=== PATIENT | male | born 1965 | race Caucasian/White ===

== ENCOUNTER 2017-04-26 15:47 | Emergency (ER) | payer OTHER ==
[~2017-04-26] VITALS: Ht 157.5 cm; Wt 85.7 kg
[2017-04-26 17:28] VITALS: Ht 157.5 cm; Wt 85.7 kg
[2017-04-26 18:11] LABS: RED CELL DISTRIBUTION WIDTH 13.1 % (11.5-14.5)
[2017-04-26 18:15] LABS: PLATELET COUNT 128 x10^3mcL (130-400)
[2017-04-26 18:31] VITALS: BP 136/88
[2017-04-26 18:33] LABS: BAND NEUTROPHIL 13 % (0-10); METAMYELOCTE 1 % (0-2); MONOCYTE 9 % (0-7); SEGMENTED NEUTROPHILS 71 % (37-75)
[2017-04-26 18:34] LABS: PLATELET MORPHOLOGY LARGE PLATELET SEEN; rbc morphology (normal/abnorm) NORMAL (NORMAL)
[2017-04-26 18:39] LABS: T3 TOTAL 0.35 ng/mL
[2017-04-26 18:48] LABS: BILIRUBIN TOTAL 2.2 mg/dL (0.20-1.00); CALCIUM 8.1 mg/dL (8.5-10.1); CARBON DIOXIDE 16.7 mmol/L (21-32); CREATININE SERUM 1.5 mg/dL (0.7-1.3); POTASSIUM SERUM 3.7 mmol/L (3.5-5.1); TOTAL PROTEIN, SERUM 7.2 g/dL (6.4-8.2)
[2017-04-26 18:50] LABS: UA SPECIFIC GRAVITY 1.015 (1.005-1.035); microscopic required? YES; urine erythrocyte 1+ (NEGATIVE)
[2017-04-26 18:52] LABS: ALBUMIN 2.5 g/dL (3.4-5.0)
[2017-04-26 18:58] LABS: AMPHETAMINE QUAL UR NONE DETECTED (NEG <=1000)
[2017-04-26 19:04] LABS: CK-MB 2.6 ng/mL (0-3.6)
[2017-04-26 19:07] LABS: ERYTHROCYTE SED RATE 52 mm/hr (0-15)
[2017-04-26 19:10] LABS: C REACTIVE PROTEIN 22.9 mg/dL (<=0.9)
[2017-04-26 19:19] LABS: FREE T4 1.35 ng/dL (0.76-1.46); FREE THYROXINE INDEX 2.5 ug/dL (1.4-4.5); T4(THYROXINE) 6.6 ug/dL (4.7-13.3)
== END 2017-04-26 18:48 | disposition short-term general hospital (02) ==
LOC: ED 15:47
PROVIDERS: Specialist
DX: E11.65 Type 2 diabetes mellitus with hyperglycemia (principal); D72.829 Elevated white blood cell count, unspecified
CPT/HCPCS: 36600; 83880; 84439; J1644; J7030